=== PATIENT | female | born 1990 | race Caucasian/White ===

== ENCOUNTER 2017-03-05 21:19 | Emergency (ER) | payer BC, MEDICAID ==
[~2017-03-05] VITALS: Ht 157.5 cm; Wt 73.0 kg
[~2017-03-05 21:19] MED LIST: AMOXICILLIN
[2017-03-05 23:30] VITALS: BP 112/66
== END 2017-03-05 23:30 | disposition home or self-care (01) ==
LOC: ER 21:20
DX: R06.02 Shortness of breath (principal); F41.9 Anxiety disorder, unspecified; Z79.899 Other long term (current) drug therapy; Z98.890 Other specified postprocedural states
CPT/HCPCS: 99283